=== PATIENT | male | born 1940 | race Caucasian/White ===

== ENCOUNTER 2016-12-31 07:55 | Day surgery (SDC) | payer MEDICARE, BC ==
--- NOTE | ~2016-12-31 | EGD ---
EGD REPORT [facility] [address] [address] NAME: SWAPNIL MONTERO : [birth year] STATUS : REG [facility]#: [id number] AGE: 76 ADM/REG DATE : 12/31/16 MR#: [id number] REPORT SERV DATE: 12/31/16 DICTATED BY: GEORGIE ORDAZ DATE: 12/31/16 REPORT STATUS : Draft TRANSCRIBED BY: [employer] DATE: 12/31/16 Endoscopy Center Patient Name: Swapnil Montero. Date of : 1940 Attending MD: GEORGIE ORDAZ, Procedure Date No Time: 12/31/2016 Procedure: Upper GI endoscopy Indications: For therapy of Holman's esophagus Referring MD: JOJO MENESES Medicines: Monitored Anesthesia Care Complications: No immediate complications. Estimated blood loss: None. Procedure: Pre-Anesthesia Assessment: - ASA Grade Assessment: III - A patient with severe systemic disease. After obtaining informed consent, the endoscope was passed under direct vision. Throughout the procedure, the patient's blood pressure, pulse, and oxygen saturations were monitored continuously. The GIF H190 [id number] was introduced through the mouth, and advanced to the second part of duodenum. The upper GI endoscopy was accomplished without difficulty. The patient tolerated the procedure well. Findings: The esophagus and gastroesophageal junction were examined with white light. Holman's esophagus was present. Two tongues of salmon-colored mucosa were present at 41 cm. The maximum longitudinal extent of these esophageal mucosal changes was 0.5 cm in length. Focal radiofrequency ablation of Holman's esophagus was performed. With the endoscope in place, the position and extent of the Holman's mucosa and the anatomic landmarks were noted. The endoscope was then removed from the patient. The Halo radiofrequency ablation catheter was attached to the tip of the endoscope. The endoscope with the attached radiofrequency ablation catheter was then passed transorally under direct vision into the esophagus and advanced to the areas of Holman's mucosa. The radiofrequency ablation catheter was placed in contact with the surface of the Holman's mucosa under direct visualization and energy was applied twice at 12 J/cm2. Ablation was repeated in a likewise fashion to all visible Holman's mucosa. The ablation zone was cleaned of coagulative debris. The ablation catheter and endoscope were then removed and the catheter was cleaned. The catheter and endoscope were reinserted into the esophagus. A second round of ablation was then performed. Energy was applied twice at 12 J/cm2 to retreat the areas of Holman's epithelium that had been treated with the first series of ablation. The areas of the esophagus where Holman's mucosa had been EGD REPORT [address] [place]. [address] NAME: SWAPNIL MONTERO Alberto : [birth year] STATUS : REG [facility]#: [id number] AGE: 76 ADM/REG DATE : 12/31/16 MR#: [id number] REPORT SERV DATE: 12/31/16 DICTATED BY: GEORGIE ORDAZ DATE: 12/31/16 REPORT STATUS : Draft TRANSCRIBED BY: [employer] DATE: 12/31/16 ablated were carefully examined. Areas of Holman's esophagus were completely treated. The exam of the esophagus was otherwise normal. The entire examined stomach was normal. The cardia and gastric fundus were normal on retroflexion. The examined duodenum was normal. Impression: - Holman's esophagus. Treated with radiofrequency ablation. - Normal stomach. - Normal examined duodenum. Recommendation: - Patient has a contact number available for emergencies. The signs and symptoms of potential delayed complications were discussed with the patient. Return to normal activities tomorrow. Written discharge instructions were provided to the patient. - Return to previous diet. - Continue present medications. - Repeat the upper endoscopy in 3 months for surveillance. Procedure Code(s): --- Professional --- 67278, Esophagogastroduodenoscopy, flexible, transoral; with ablation of tumor(s), polyp(s), or other lesion(s) (includes pre- and post-dilation and guide wire passage, when performed) Diagnosis Code(s): --- Professional --- K22.70, Holman's esophagus without dysplasia CPT copyright 2013 [employer]. All rights reserved. The codes documented in this report are preliminary and upon geophysical computer review may be revised to meet current compliance requirements. GEORGIE SUSHMA, 12/31/2016 9:20 AM Number of Addenda: 0 Note Initiated On: 12/31/2016 8:57 AM Scope Withdrawal Time 0 hours 0 minutes 0 seconds [address] [place] [address]
[~2016-12-31 07:55] MED LIST: ANDROGEL1.25 GM TOP; ANTIHISTAMINE; ASAB PO; ATV1 PO; AVODART PO; BEN25 PO; CALTRA600D PO; CLOTRIM/BETA EX; CO Q-10100 MG PO; CRESTOR10 PO; ENTOCORT3 PO; FL250 PO; FLEX PO; FLOMAX4 PO; GAS-X80 MG PO; GLUCPH PO; LOM PO; MOMETASONE0.11 EX; MULTIPLE VIT PO; NEUR300 PO; NEXIUM20 M1 PO; NEXIUM40 PO; PEPTO-BISMOL TA1 TAB PO; PEPTO-BISMOL262 MG OR; POTASSIUM95 MG PO; PREV30 PO; PROCTO TOP; RED YEAST PO; ROLAIDS PO; SUCR PO; VITAMIN D31000 UNIT PO; X25 PO; ZYRTEC ALLGY10 MG PO; [UNRECOGNIZED DRUG - OTHER] PO
[2017-03-31] MEDS ORDERED: CENTRUM PO (13:19)
[2017-03-31] MEDS ORDERED: CALCIUM CITRATE PO (13:19)
[2017-03-31] MEDS ORDERED: VITC500 PO (13:20)
[2017-03-31] MEDS ORDERED: FOLIC ACID400 MC1 PO (13:20)
[2017-03-31] MEDS ORDERED: METPAKSF PO (13:27)
[2017-07-07] MEDS ORDERED: BUSPAR10 PO (10:25)
[2017-07-07] MEDS ORDERED: CELEXA20 PO (10:25)
== END 2016-12-31 23:59 | disposition home or self-care (01) ==
LOC: DMU 07:55
PROVIDERS: Internal Medicine Gastroenterology
PROC: 0D558ZZ Destruction of Esophagus, Via Natural or Artificial Opening Endoscopic (ICD-10-PCS; principal; 2016-12-31 09:30)
DX: K22.70 Barrett's esophagus without dysplasia (principal); G47.33 Obstructive sleep apnea (adult) (pediatric); N40.0 Benign prostatic hyperplasia without lower urinary tract symptoms; E11.42 Type 2 diabetes mellitus with diabetic polyneuropathy; C81.90 Hodgkin lymphoma, unspecified, unspecified site; Z79.899 Other long term (current) drug therapy; Z79.84 Long term (current) use of oral hypoglycemic drugs
CPT/HCPCS: 82962

== ENCOUNTER 2017-04-05 07:14 | Day surgery (SDC) | payer MEDICARE, BC ==
--- NOTE | ~2017-04-05 | EGD ---
EGD REPORT [facility] [address] [address] NAME: SWAPNIL MONTERO : [birth year] STATUS : [facility] [place] [facility] [id number] AGE: 76 ADM/REG DATE : 04/05/17 MR#: [id number] REPORT SERV DATE: 04/05/17 DICTATED BY: GEORGIE ORDAZ DATE: 04/05/17 REPORT STATUS : Draft TRANSCRIBED BY: [employer] DATE: 04/05/17 Endoscopy Center Patient Name: Swapnil Montero. Date of : 1940 Attending MD: GEORGIE ORDAZ, Procedure Date No Time: 04/05/2017 Procedure: Colonoscopy Indications: Screening for colorectal malignant neoplasm Referring MD: JOJO MENESES Medicines: Monitored Anesthesia Care Procedure: Pre-Anesthesia Assessment: - ASA Grade Assessment: III - A patient with severe systemic disease. After I obtained informed consent, the scope was passed under direct vision. Throughout the procedure, the patient's blood pressure, pulse, and oxygen saturations were monitored continuously. The CF [id number] was introduced through the anus and advanced to the sigmoid colon. The PCF H190L [id number] was introduced through the anus and advanced to the cecum, identified by appendiceal orifice and ileocecal valve. The colonoscopy was performed without difficulty. The patient tolerated the procedure well. The quality of the bowel preparation was good. Findings: The perianal and digital rectal examinations were normal. Many small-mouthed diverticula were found in the sigmoid colon. The exam was otherwise without abnormality on direct and retroflexion views. Internal hemorrhoids were found, and they were Grade I (internal hemorrhoids that do not prolapse). Impression: - Diverticulosis in the sigmoid colon. - The examination was otherwise normal on direct and retroflexion views. Recommendation: - Patient has a contact number available for emergencies. The signs and symptoms of potential delayed complications were discussed with the patient. Return to normal activities tomorrow. Written discharge instructions were provided to the patient. - Return to previous diet. - Continue present medications. - Repeat colonoscopy is not recommended for screening purposes. EGD REPORT [facility] [address] [address] NAME: SWAPNIL MONTERO : [birth year] STATUS : REG [facility]#: [id number] AGE: 76 ADM/REG DATE : 04/05/17 MR#: [id number] REPORT SERV DATE: 04/05/17 DICTATED BY: GEORGIE ORDAZ DATE: 04/05/17 REPORT STATUS : Draft TRANSCRIBED BY: [employer] DATE: 04/05/17 Procedure Code(s): --- Professional --- G0121, Colorectal cancer screening; colonoscopy on individual not meeting criteria for high risk Diagnosis Code(s): --- Professional --- K57.30, Diverticulosis of large intestine without perforation or abscess without bleeding Z12.11, Encounter for screening for malignant neoplasm of colon CPT copyright 2013 [employer]. All rights reserved. The codes documented in this report are preliminary and upon conductor/engineer review may be revised to meet current compliance requirements. GEORGIE ORDAZ, 04/05/2017 9:55 AM Number of Addenda: 0 Note Initiated On: 04/05/2017 9:20 AM Scope Withdrawal Time 0 hours 9 minutes [address] [place] [address]
--- NOTE | ~2017-04-05 | EGD ---
EGD REPORT [facility] [address] [address] NAME: SWAPNIL MONTERO : 38 STATUS : REG [facility]#: [id number] AGE: 76 ADM/REG DATE : 04/05/17 MR#: [id number] REPORT SERV DATE: 04/05/17 DICTATED BY: GEORGIE ORDAZ DATE: 04/05/17 REPORT STATUS : Draft TRANSCRIBED BY: [employer] DATE: 04/05/17 Endoscopy Center Patient Name: Swapnil Montero. Date of : 1940 Attending MD: GEORGIE ORDAZ, Procedure Date No Time: 04/05/2017 Procedure: Upper GI endoscopy Indications: Holman's high grade dysplasia, Follow-up of previous ablation treatment of Holman's esophagus Referring MD: JOJO MENESES Medicines: Monitored Anesthesia Care Complications: No immediate complications. Estimated blood loss: None. Procedure: Pre-Anesthesia Assessment: - ASA Grade Assessment: III - A patient with severe systemic disease. After obtaining informed consent, the endoscope was passed under direct vision. Throughout the procedure, the patient's blood pressure, pulse, and oxygen saturations were monitored continuously. The GIF H190 [id number] was introduced through the mouth, and advanced to the second part of duodenum. The upper GI endoscopy was accomplished without difficulty. The patient tolerated the procedure well. Findings: The lower third of the esophagus was normal. Biopsies were taken with a cold forceps for histology. Verification of patient identification for the specimen was done. Estimated blood loss was minimal. The exam of the esophagus was otherwise normal. The stomach was normal. The cardia and gastric fundus were normal on retroflexion. The examined duodenum was normal. Impression: - Normal lower third of esophagus. Biopsied. - Normal stomach. - Normal examined duodenum. Recommendation: - Patient has a contact number available for emergencies. The signs and symptoms of potential delayed complications were discussed with the patient. Return to normal activities tomorrow. Written discharge instructions were provided to the patient. - Return to previous diet. - Continue present medications. - Await pathology results. EGD REPORT [address] [place]. [address] NAME: SWAPNIL MONTERO : 38 STATUS : REG [facility]#: [id number] AGE: 76 ADM/REG DATE : 04/05/17 MR#: [id number] REPORT SERV DATE: 04/05/17 DICTATED BY: GEORGIE ORDAZ DATE: 04/05/17 REPORT STATUS : Draft TRANSCRIBED BY: [employer] DATE: 04/05/17 - Repeat the upper endoscopy in 3 months for surveillance. Procedure Code(s): --- Professional --- 14502, Esophagogastroduodenoscopy, flexible, transoral; with biopsy, single or multiple Diagnosis Code(s): --- Professional --- K22.711, Holman's esophagus with high grade dysplasia Z09, Encounter for follow-up examination after completed treatment for conditions other than malignant neoplasm CPT copyright 2013 [employer]. All rights reserved. The codes documented in this report are preliminary and upon machine bunch maker review may be revised to meet current compliance requirements. GEORGIE ORDAZ, 04/05/2017 9:51 AM Number of Addenda: 0 Note Initiated On: 04/05/2017 9:22 AM Scope Withdrawal Time 0 hours 0 minutes [address] [place], [place] [address] [address]
[~2017-04-05 07:14] MED LIST changes: +CALCIUM CITRATE PO; +CENTRUM PO; +FOLIC ACID400 MC1 PO; +METPAKSF PO; +VITC500 PO
[2017-07-07] MEDS ORDERED: CELEXA20 PO (10:25)
[2017-07-07] MEDS ORDERED: BUSPAR10 PO (10:25)
== END 2017-04-05 23:59 | disposition home or self-care (01) ==
LOC: DMU 07:14
PROVIDERS: Internal Medicine Gastroenterology
PROC: 0DJD8ZZ Inspection of Lower Intestinal Tract, Via Natural or Artificial Opening Endoscopic (ICD-10-PCS; principal; 2017-04-05 08:30)
PROC: 0DB38ZX Excision of Lower Esophagus, Via Natural or Artificial Opening Endoscopic, Diagnostic (ICD-10-PCS; 2017-04-05 08:30)
DX: Z12.11 Encounter for screening for malignant neoplasm of colon (principal); K57.30 Diverticulosis of large intestine without perforation or abscess without bleeding; K20.9 Esophagitis, unspecified; E11.40 Type 2 diabetes mellitus with diabetic neuropathy, unspecified; G47.33 Obstructive sleep apnea (adult) (pediatric); K52.9 Noninfective gastroenteritis and colitis, unspecified; K22.0 Achalasia of cardia; N40.0 Benign prostatic hyperplasia without lower urinary tract symptoms; Z88.2 Allergy status to sulfonamides; Z88.8 Allergy status to other drugs, medicaments and biological substances; Z79.82 Long term (current) use of aspirin; Z79.899 Other long term (current) drug therapy; Z90.49 Acquired absence of other specified parts of digestive tract; Z98.41 Cataract extraction status, right eye; Z98.42 Cataract extraction status, left eye; Z98.890 Other specified postprocedural states
CPT/HCPCS: 43239; G0121; 82962; 88305